=== PATIENT | male | born 1955 | race Caucasian/White ===

== ENCOUNTER 2018-11-08 19:06 | Emergency (ER) | payer BC, SELFPAY ==
[2018-11-08 19:16] VITALS: BP 155/86; PULSE 86; RESP 16; TEMP 36.5; O2SAT 96; BMI 28.5
--- NOTE | 2018-11-08 19:36 | DI.RAD.S_ITS ---
PROCEDURE: XR FINGER LT MIN 2V INDICATIONS: L 4th finger avulsion/laceration TECHNIQUE: AP hand, 2 views of the left fourth finger acquired. COMPARISON: None. FINDINGS: No acute fracture or dislocation or radiopaque foreign body. Soft tissue swelling. IMPRESSION: No acute bony abnormality of the left fourth finger. Dictated by: Ortiz Guardado M.D. on 11/08/2018 at 20:24 Approved by: Ortiz Guardado M.D. on 11/08/2018 at 20:25
[2018-11-08] MEDS: TRIMETH/SULFA 160/800 (DS) TABLET 1 TAB PO (20:09)
--- NOTE | 2018-11-08 20:17 | ED.WOUNDLAC ---
HPI - Wound/Laceration General Chief Complaint: Wound/Laceration Stated Complaint: left hand ring finger wound Time Seen by Provider: 11/08/18 19:10 Source: patient Mode of arrival: ambulatory Limitations: no limitations History of Present Illness HPI narrative: 63-year-old male nonsmoker with long orthopedic history presents by himself with a chief complaint of a left ring finger injury. This injury was suffered just prior to his arrival when he was attempting to get off his boat and the ring on his finger caught on a part of the railing causing a large, deep laceration. The patient's tetanus was updated 3-4 years ago. He has full range of motion and denies any numbness, tingling or weakness. He denies other injury. Onset (ago): minute(s) Extremity Location: Left: hand Place: home Patient tetanus UTD: Yes Context: accidental Associated symptoms: pain Treatments prior to arrival: bandage Related Data Home Medications Medication Instructions Recorded Confirmed Lipitor 11/08/18 amlodipine 11/08/18 losartan 11/08/18 Previous Rx's Medication Instructions Recorded sulfamethoxazole-trimethoprim 1 tab PO BID 10 Days #20 tab 11/08/18 [Bactrim DS] Allergies Allergy/AdvReac Type Severity Reaction Status Date / Time bacitracin Allergy Verified 11/08/18 19:20 [From Neosporin ([id number])] doxycycline Allergy Verified 11/08/18 19:37 neomycin Allergy Verified 11/08/18 19:20 [From Neosporin ([id number])] Penicillins Allergy Verified 11/08/18 19:20 polymyxin B Allergy Verified 11/08/18 19:20 [From Neosporin ([id number])] Review of Systems Constitutional Denies chills, Denies fever(s), Denies lethargy and Denies weakness Eyes Denies change in vision, Denies eye discharge, Denies irritation and Denies loss of vision ENT Ears, Nose, Mouth, and Throat: Denies change in voice, Denies neck pain and Denies sore throat Cardiovascular Denies chest pain, Denies irregular heart rhythm, Denies lightheadedness, Denies palpitations, Denies dyspnea, Denies dyspnea on exertion and Denies orthopnea Respiratory Denies cough, Denies dyspnea, Denies dyspnea on exertion and Denies wheezing Gastrointestinal Gastrointestinal: Denies abdominal pain, Denies change in bowel habits, Denies diarrhea, Denies nausea and Denies vomiting Genitourinary Denies hematuria, Denies flank pain, Denies urinary incontinence and Denies urinary urgency Musculoskeletal Denies neck pain Integumentary/Breasts Denies pruritus, Denies erythema, Denies rash and Reports wounds Neurologic Denies confusion, Denies loss of vision and Denies weakness Psychiatric Denies anxiety, Denies confusion, Denies depression, Denies homicidal ideation and Denies suicidal ideation Endocrine Denies palpitations Hematologic/Lymphatic Denies easy bruising Allergic/Immunologic Denies wheezing [facility] Medical History HTN (hypertension) (Acute) Hyperlipidemia (Acute) Social History Smoking Status: Never smoker Social History Smoking Status: Never smoker Exam Narrative Exam Narrative: GEN: AOx3 and in mild distress, obviously uncomfortable and a bit nervous EYES: Pupils are equal, round, and reactive to light and accommodation. Extraoccular muscles are intact bilaterally. There is no subconjunctival hemorrhage or exudate. CHEST: Lungs are clear to auscultation bilaterally and free of wheezes, rales, or rhonchi. Heart rate is regular rhythm, there are no murmurs, clicks, rubs, or gallops. There is no chest wall tenderness. ABD: Abdomen is soft and nontender. There is no guarding or rebound. Bowel sounds are normal in all 4 quadrants. There is no mass or organomegaly. EXT: Full painless ROM of all extremities with no loss of sensation or strength. Left ring finger examined in a bloodless field and full range of motion noted. No tendon involvement noted. NV in tact. 2cm complex, deep, irregular laceration overlying medial DIP SKIN: Warm, pink, and dry. No erythema or rash Initial Vital Signs Initial Vital Signs: Vital Signs Temperature 97.7 F 11/08/18 19:16 Pulse Rate 86 11/08/18 19:16 Respiratory Rate 16 11/08/18 19:16 Blood Pressure 155/86 H 11/08/18 19:16 Pulse Oximetry 96 11/08/18 19:16 Procedures Laceration Repair Laceration 1: Site: hand Side (If applicable): left Size (cm): 2 Description: stellate and irregular Depth: simple, single layer Pre-repair: wound explored and deep structures intact Skin layer closed with: nylon Size (cm): 5-0 Number of sutures: 7 Nerve Block Nerve Block 1: Time out performed: Yes Local Anesthetic: lidocaine 1% and with bicarb Amount of anesthesia used (mL): 3 Side: left Nerve Blocks: digital Procedure Successful: Yes Patient Tolerated Procedure: Well Complications: none Orthopedic Splinting/Casting Injury #1: Side: left Upper Extremity Injury Location: finger Upper Extremity Immobilizer: finger (other) Post splinting neuro exam: intact Post splinting vascular exam: intact Placed by: Nursing Course Orders Ordered: ED Orders 11/08/18 19:36 XR finger LT min 2V Stat Discontinued Medications Trimethoprim/Sulfamethoxazole (Bactrim Ds) 1 tab PO NOW ONE Stop: 11/08/18 20:03 Last Admin: 11/08/18 20:09 Dose: 1 tab Vital Signs - 8 hr 11/08/18 19:16 11/08/18 20:20 Temperature 97.7 F 98.2 F Pulse Rate 86 80 Respiratory Rate 16 16 Blood Pressure 155/86 H 150/80 H Pulse Oximetry 96 98 MDM - Wound/Laceration Imaging Data Finger Xray: Radiologist's impression: [place] [address] XRay Report Signed Patient: Rebel Barnett RMR#: [id number] : 4Acct:[id number] Age/Sex: 63 / MDate of Service: 11/08/18 Loc: ED Accession Number: [id number] Procedure: XR finger LT min 2V Ordering Provider: Luigi Omer D.O. PROCEDURE: XR FINGER LT MIN 2V INDICATIONS: L 4th finger avulsion/laceration TECHNIQUE: AP hand, 2 views of the left fourth finger acquired. COMPARISON: None. FINDINGS: No acute fracture or dislocation or radiopaque foreign body. Soft tissue swelling. IMPRESSION: No acute bony abnormality of the left fourth finger. Dictated by: Ortiz Guardado M.D. on 11/08/2018 at 20:24 Approved by: Ortiz Guardado M.D. on 11/08/2018 at 20:25 Discharge Plan Departure Patient Disposition: Home Clinical Impression: Laceration Discharge Date/Time: 11/08/18 20:20 Interventions: ED Discharge Assessment Last Done: 11/08/18 20:20 Instructions: DI for Laceration Repair Activity Restrictions/Additional Instructions: *You have been diagnosed with [ complex laceration of left ring finger ] *What to do: *Take medications as directed *Follow up with your primary care provider in 2-3 days, call for an appointment. Let them know you were seen in the Emergency Department and that we ask that you be seen in follow up, it is entirely possible that they can be set up with wound care to ensure proper healing *Return to ER if you should have any new, worsening or concerning symptoms, such as [ worsening pain, drainage, redness or swelling.] Prescriptions: New sulfamethoxazole-trimethoprim [Bactrim DS] 800-160 mg tablet 1 tab PO BID 10 Days Qty: 20 RF: 0 No Action losartan RF: 0 amlodipine RF: 0 Lipitor RF: 0
--- NOTE | 2018-11-08 20:18 | PC.NURSE ---
Xeroform covered the site and wrapped with tubular gauze. Pt tolerated well.
[2018-11-08 20:20] VITALS: BP 150/80; PULSE 80; RESP 16; TEMP 36.8; O2SAT 98
== END 2018-11-08 20:20 | disposition home or self-care (01) ==
LOC: ED 20:13
PROVIDERS: Emergency Provider Emergency Medicine
DX: S61.215A Laceration without foreign body of left ring finger without damage to nail, initial encounter (principal)
CPT/HCPCS: 12001; 64450; 73140; 99283; 99284